=== PATIENT | female | born 1960 | race Caucasian/White ===

== ENCOUNTER → 2020-08-30 16:09 | Outpatient (BNVA) | payer OTHER, SELFPAY | PROVIDERS: PCP Internal Medicine; Referring Provider Internal Medicine; Visit Provider Internal Medicine Pulmonary Disease | DX: Z76.89 Persons encountering health services in other specified circumstances (principal) ==

== ENCOUNTER → 2021-01-03 16:05 | Outpatient (BNVA) | payer OTHER, SELFPAY | PROVIDERS: PCP Internal Medicine; Visit Provider Internal Medicine Pulmonary Disease ==

== ENCOUNTER → 2021-05-10 16:06 | Outpatient (BNVA) | payer OTHER, SELFPAY | PROVIDERS: PCP Internal Medicine; Visit Provider Internal Medicine Pulmonary Disease ==

== ENCOUNTER → 2022-02-08 14:26 | Outpatient (BNVA) | payer OTHER, SELFPAY | PROVIDERS: PCP Internal Medicine; Visit Provider Internal Medicine Pulmonary Disease | DX: Z13.89 Encounter for screening for other disorder (principal) ==

== ENCOUNTER 2022-03-02 14:54 | Outpatient (REF) | payer OTHER, SELFPAY ==
--- NOTE | ~2022-03-02 | CT_ITS ---
EXAMINATION: CT CHEST WITHOUT CONTRAST CLINICAL INFORMATION: Post Covid condition. COMPARISON: Previous chest CT October 2020 TECHNIQUE: Multidetector volumetric CT imaging of the chest was done. Axial MIP volume rendering provided. Sagittal and coronal reformatted images were obtained. This CT examination was performed using dose optimization techniques as appropriate, variously including the following: *Automated exposure control *Adjustment of mA and/or kV according to patient size (this includes techniques or standardized protocols for targeted exams where dose is matched to indication/reason for exam; i.e. extremities or head) *Use of iterative reconstruction technique DLP: 288 mGy-cm FINDINGS: LUNGS: The lungs are clear with no evidence of inflammation or nodules. MEDIASTINUM: The mediastinum is normal. PLEURA: There is no pleural effusion. No pleural mass or thickening. AXILLA: 8 mm nodule in the left lateral breast. Correlation with physical exam and mammogram recommended. No axillary adenopathy. UPPER ABDOMEN: Enlarged fatty liver. OSSEOUS STRUCTURES: Mild degenerative changes of the spine. CT/CT chest wo con IMPRESSION: Normal chest. 8 mm nodule in the lateral left breast. Correlation with clinical exam and mammogram recommended. Enlarged fatty liver. Fleischner guidelines were followed.
--- NOTE | 2022-03-02 17:16 | PFT_ITS ---
Forced vital capacity is 79%. FEV1 86%. FEF 25-75 126% and MVV 97%. All these numbers are normal. Postbronchodilator, therapy there is no significant change. Total lung capacity 79%. Residual volume is 67%. Diffusion capacity 69%. CONCLUSION: There is a borderline degree of restrictive pulmonary disorder, but there is no obstructive airway disorder. No response to bronchodilator therapy. Compared to the results of 12/16/2019, there was actually slight improvement in all the numbers. Jacob Alvarez MD MS[facility] / [id number]
== END 2022-03-02 14:55 | disposition home or self-care (01) ==
LOC: HO.RESP 14:54
PROVIDERS: PCP Internal Medicine; Visit Provider Internal Medicine Pulmonary Disease
DX: U09.9 Post COVID-19 condition, unspecified (principal)
CPT/HCPCS: 71250; 94060; 94727; 94729

== ENCOUNTER → 2022-03-05 15:25 | Outpatient (BNVA) | payer OTHER, SELFPAY | PROVIDERS: PCP Internal Medicine; Visit Provider Internal Medicine Pulmonary Disease | DX: J45.20 Mild intermittent asthma, uncomplicated (principal) ==